=== PATIENT | male | born 1930 | race Caucasian/White ===

== ENCOUNTER 2017-08-17 18:06 | Inpatient (IN) | payer OTHER ==
[~2017-08-17] VITALS: Ht 175.2 cm; Wt 73.2 kg
--- NOTE | ~2017-08-17 | CON ---
[place], [place] REPORT OF CONSULTATION NAME: MOISES CORONA UNIT #: [id number] ROOM: 523 DOCTOR: JENNIFER DRAKE MD BIRTHDATE: [birth year] DOS: 08/18/2017 REASON FOR ADMISSION: Possible CHF. HISTORY OF PRESENT ILLNESS: An 86-year-old with a known history of significant coronary artery disease, bypass surgery. [facility] [place] [facility] and the patient was told that possibility of CHF and patient was consulted. Right now, he denies any chest discomfort. The patient is a very poor historian. Extremely hard of hearing. History mostly obtainable from the chart, not much obtained from the patient. MEDICATIONS: The patient is on simvastatin, fosinopril, aspirin, gabapentin, and Apixaban. ALLERGIES: None. SURGICAL HISTORY: As mentioned. PAST SURGICAL HISTORY: History of abdominal aortic aneurysm repair and bypass surgery 4-vessel. SOCIAL HISTORY: Denies any alcohol or tobacco abuse. FAMILY HISTORY: Hypertension. REVIEW OF SYSTEMS: CONSTITUTIONAL: Not in acute distress. HEENT: No visual disturbances, hearing problems. The patient is very hard of hearing. CARDIOVASCULAR: As per HPI. GASTROINTESTINAL: No nausea, no vomiting. GENITOURINARY: No dysuria. NEUROLOGIC: No syncope. PHYSICAL EXAMINATION: VITAL SIGNS: The patient's blood pressure is 100/70. HEENT: Unremarkable. NECK: Supple, no JVD. LUNGS: Diminished air entry. HEART: Sounds are regular. NEUROLOGICAL: Stable. LABORATORY DATA: Sodium 145, potassium 4, BUN 27, creatinine 1.3, hemoglobin 12, hematocrit 37.5. Chest x-ray showed cardiomegaly with interstitial pulmonary small left pleural effusion. I reviewed the echocardiogram, showed an excellent ejection fraction with mild to moderate aortic regurgitation and moderate mitral regurgitation. EKG shows 100% paced rhythm. IMPRESSION: Diastolic congestive heart failure, permanent pacemaker, hypertension, and hyperlipidemia, known coronary artery disease. [place], [place] REPORT OF CONSULTATION NAME: MOISES CORONA UNIT #: [id number] ROOM: 523 DOCTOR: JENNIFER DRAKE MD BIRTHDATE: [birth year] RECOMMENDATIONS: Continue the present medications. Continue IV diuretics. Strict I's and O's. Add a very small dose of beta blockers, he is not on anything at this point. Selective beta blockers like metoprolol 25 b.i.d. Creatinine is 1.3. If needed, we will watch the renal function closely. GFR is 49. We could consider a very small dose of KATHERINE inhibitors like to lisinopril 0.125 daily and monitor the heart rate and blood pressure closely and I will follow up. JENNIFER DRAKE MD CM:CONSTR:REPORT OF CONSULTATION 1500 08/19/17 0222 interface
[~2017-08-17 18:06] MED LIST changes: -ALLOPURINOL100 MG PO; -CENTRUM SILVER1 EACH PO; -ELIQUIS2.5 M1 PO; -Glimepiride1 MG PO; -LEVAQUIN500 M2 PO; -PREDNISONE10 MG PO
[2017-08-17 18:16] VITALS: BP 117/61
[2017-08-17 18:51] LABS: BASO % 0.2 % (0.0-1.0); EOS # 0.3 10*3/uL (0.0-0.4); EOS % 3.9 % (1.0-4.0); HEMATOCRIT 37.5 % (42.0-52.0); LYMPH # 2.4 10*3/uL (1.3-4.4); LYMPH % 29.5 % (27.0-41.0); MEAN CELL VOLUME 103.6 fl (80.0-94.0); MEAN CORPUSCULAR HGB 33.1 pg (27.0-31.0); MEAN PLATELET VOLUME 10.5 fl (9.6-12.3); MONO # 0.6 10*3/uL (0.1-1.0); NEUT # 4.7 10*3/uL (2.3-7.9); NEUT % 58.2 % (47.0-73.0); PLATELET COUNT AUTOMATED 192 10*3/uL (130-400); RED BLOOD COUNT 3.62 10*6/uL (4.50-5.90); RED CELL DISTRI WIDTH 14.8 % (0-14.5)
[2017-08-17 19:02] LABS: ACT PARTIAL THROMBO TIME 32.6 SECONDS (20.8-31.5); INTERNATIONAL NORM RATIO 1.2 (2.0-3.5)
[2017-08-17 19:08] LABS: BUN 27 mg/dl (7-24); CHLORIDE 111 mmol/L (98-107); CREATININE 1.32 mg/dL (0.70-1.30); SODIUM 145 mmol/L (136-145)
--- NOTE | 2017-08-17 19:16 | NUR ---
REPORT GIVEN TO [facility] [phone]. ADEN CALIXTO RN.
[2017-08-17 20:30] VITALS: BP 119/51
--- NOTE | 2017-08-17 20:30 | NUR ---
A 86, admitted to , under the services of MOLLY Valencia DO with a diagnosis of CHF. Chief complaint is C/O SHORTNESS OF BREATH. CAME FROM [facility]. Patient arrived via stretcher from ER. Monitor applied. Initial assessment completed. Vital signs taken and recorded. MOLLY VALENCIA DO notified of admission to the unit. Orders received. See assessment for past medical history, medications and allergies. Patient and/or family oriented to unit. [facility] visitation policy reviewed. Clothing/patient valuable form completed. WIN HORTON
--- NOTE | 2017-08-17 20:45 | NUR ---
MED LIST REVIEWED WITH FAMILY AND PATIENT.
--- NOTE | 2017-08-17 20:50 | NUR ---
SPOKE WITH DR. SMITH ABOUT MED REC BEING UPDATED AND ABOUT THE TOP OF LEFT FOOT. WAS TOLD TO NOTIFY WILLIE IN AM.
[2017-08-17] MEDS ORDERED: ELIQUIS2.5 M1 PO (21:03)
[2017-08-17] MEDS ORDERED: CENTRUM SILVER1 EACH PO (21:04)
[2017-08-17] MEDS ORDERED: ALLOPURINOL100 MG PO (21:05)
[2017-08-17] MEDS ORDERED: Glimepiride1 MG PO (21:12)
[2017-08-18] VITALS: BP 98/42
--- NOTE | 2017-08-18 06:36 | NUR ---
DR. DRAKE CALLED AND NOTIFIED OF CONSULT PER ORDER.
--- NOTE | 2017-08-18 06:52 | NUR ---
SPOKE TO BRODY LEIGH . STATED THAT PATIENT'S BEE WORKER IS DR. QUESADA FROM [place], BUT SHE THINKS HE MAY ALSO GO TO [facility].
[2017-08-18 07:47] LABS: BASO % 0.3 % (0.0-1.0); EOS # 0.5 10*3/uL (0.0-0.4); EOS % 5.6 % (1.0-4.0); HEMATOCRIT 36.2 % (42.0-52.0); HEMOGLOBIN 11.6 g/dl (14.0-18.0); LYMPH # 3.2 10*3/uL (1.3-4.4); LYMPH % 36.8 % (27.0-41.0); MEAN CELL VOLUME 102.5 fl (80.0-94.0); MEAN CORPUSCULAR HGB 32.9 pg (27.0-31.0); MEAN PLATELET VOLUME 11.2 fl (9.6-12.3); MONO # 0.7 10*3/uL (0.1-1.0); MONO % 8.6 % (3.0-9.0); NEUT # 4.2 10*3/uL (2.3-7.9); NEUT % 48.5 % (47.0-73.0); PLATELET COUNT AUTOMATED 193 10*3/uL (130-400); RED BLOOD COUNT 3.53 10*6/uL (4.50-5.90); RED CELL DISTRI WIDTH 14.8 % (0-14.5); WHITE BLOOD COUNT 8.6 10*3/uL (4.8-10.8)
[2017-08-18 08:00] VITALS: BP 126/49
[2017-08-18 08:13] LABS: ALBUMIN 2.7 gm/dl (3.1-4.5); CREATININE 1.37 mg/dL (0.70-1.30); POTASSIUM 3.4 mmol/L (3.5-5.1); TOTAL PROTEIN 7.1 gm/dL (6.4-8.2)
[2017-08-18 08:14] LABS: ACT PARTIAL THROMBO TIME 31.9 SECONDS (20.8-31.5); INTERNATIONAL NORM RATIO 1.2 (2.0-3.5)
[2017-08-18 08:19] LABS: THYROID STIM HORMONE (HS) 3.36 uIU/ml (0.358-4.75)
--- NOTE | 2017-08-18 08:33 | NUR ---
DR JOINER NOTIFIED OF CRITICAL GLUCOSE. UPDATED THAT PT DENIES FEELING LIKE HIS SUGAR IS LOW AND HE'S CURRENTLY UP EATING BREAKFAST. STATES OK TO HOLD OFF ON D50 AND RECHECK PT AFTER BREAKFAST.
--- NOTE | 2017-08-18 09:00 | NUR ---
Circus Train Supervisor in to talk to patient. Patient states lives at home with and daughter. There are few steps in the home. Physician: jaime tapia Pharmacy: Home health services: none Patient's level of ADLs: MINIMAL ASSIST Patient has working utilities: all working DME: walker, home oxygen and portable tanks, life alert bracelet Follow-up physician's appointment after d/c: will be made by hospitalist nurse director upon discharge Does patient want to access PORTAL?: no Discharge plan discussed with patient, patient lives at home with his and daughter, he uses a walker for ambulation, he has home oxygen and portable tanks, discussed with him a discharge plan and patient stated that he would be returning home, also discussed with him VNA and he refuses any services at this time, stated that he has alot of help at home, case management will follow for any needs. PARISA WALTERS
--- NOTE | 2017-08-18 09:40 | NUR ---
WILLIE, WOUND CARE NURSE IN TO SEE PT AND MAKE RECOMMENDATIONS AT THIS TIME.
--- NOTE | 2017-08-18 09:50 | NUR ---
BLOOD GLUCOSE RECHECKED AFTER BREAKFAST, 148.
--- NOTE | 2017-08-18 10:47 | NUR ---
ECHO BEING COMPLETED AT THIS TIME.
--- NOTE | 2017-08-18 10:50 | NUR ---
[facility] [id number] Please refer to the physician's history and physical for past medical history, comorbid conditions, and allergies. Diagnosis: CHF Sonny Score: 16,AT RISK WOUND DESCRIPTIONS: Location of the wound: left top of foot proximal Thickness: Partial Size: 2.4cm x 2.0cm x 0.1cm Tunneling: none Undermining: none Sinus Tract: none Presence of Exudate: Serosanguineous Amount: Light Color: Red Odor: None Periwound Skin Appearance: Erythema Wound edges: approximated Pain (associated with wound): none at time of assessment How does patient state this happened? pt stated his legs were swollen and that happened Location of the wound: left top of foot middle Thickness: Partial Size: 1.0cm x 2.0cm x <0.1cm Tunneling: none Undermining: none Sinus Tract: none Presence of Exudate: none Amount: None Color: Yellow Odor: None Periwound Skin Appearance: Erythema Wound edges: closed intact fluid filled blister Pain (associated with wound): none How does patient state this happened? pt stated he legs were swollen and this happened Location of the wound: left top of foot distal Thickness: Partial Size: 0.5cm x 0.8cm x 0.1 Tunneling: none Undermining: none Sinus Tract: none Presence of Exudate: Serosanguineous Amount: Light Color: Red Odor: None Periwound Skin Appearance: Erythema Wound edges: approximated Pain (associated with wound): none at time of assessment How does patient state this happened? pt stated his legs were swollen and that this happened Surface the patient is resting on: Isoflex SKIN PREVENTION RECOMMENDATION: 1. Pressure redistribution support surface as appropriate 2. Elevate heels 3. Remove boots/TEDS every shift and reapply 4. Head of bed 30 degrees as tolerated 5. Assess nutrition and hydration 6. Manage moisture 7. Avoid the use of containment devices while in bed 8. Use absorptive products on surfaces limit layers of linens on bed 9. Turn and reposition every 1-2 hours in bed and every 1 hour in chair as tolerated 10. Weight shifts every 15 minutes while up in chair 11. Offloading with pillows or device to keep heels elevated off bed 12. Monitor skin at least every shift 13. Inspect under medical devices twice a day WOUND TREATMENT RECOMMENDATIONS: Cleanse left foot areas with nss and apply sureprep around wound therahoney to wound bed versatel and cover with optifoam gentle.
--- NOTE | 2017-08-18 11:07 | NUR ---
case management called [facility], spoke to Cee, patient's information given and Cee stated she would give this to a binder caser and someone would call back
[2017-08-18 12:00] VITALS: BP 114/57
--- NOTE | 2017-08-18 13:43 | NUR ---
PHYSICAL THERAPY Patient evaluated on 5, full evaluation to follow. Continue with PT as per plan of care with fall, 02 and acute debility precautions. Significnt dyspneia with minimal exertion. PAtient is high complexity via chart review, tests and evaluation: [id number]. Home with 24/7 family assist and complete home health services [facility] for impaired mobility. thank you for this referral. Madeline Ribera,PT
--- NOTE | 2017-08-18 15:11 | NUR ---
DR DRAKE AND DR AVENDANO IN TO SEE PT AT THIS TIME.
--- NOTE | 2017-08-18 15:36 | NUR ---
WOUND CARE TO LEFT FOOT PERFORMED AT THIS TIME PER ORDER.
[2017-08-18 16:00] VITALS: BP 110/45
[2017-08-18 20:00] VITALS: BP 114/44
--- NOTE | 2017-08-18 20:08 | NUR ---
PATIENT IS SITTING UP IN BED WITH FAMILY MEMBERS AT THE BEDSIDE. PATIENT WAS PLEASANT UPON ASSESSMENT AND DENIES ANY PAIN AT THIS TIME. PATIENT REPOSITIONS SELF FREQUENTLY TO AVOID BACK DISCOMFORT. PATIENT IS OXYGEN DEPENDENT, BUT DENIES SOB CURRENTLY. CALL LIGHT SYSTEM WAS REINFORCED AND WITHIN REACH. SEE SHIFT ASSESSMENT.
--- NOTE | 2017-08-18 21:51 | NUR ---
PATIENT IS RESTING IN BED. PATIENT BG WAS 71MG/DL. PATIENT WAS ENCOURAGED TO DRINK ORANGE JUICE WITH EVENING SCHED MEDS. WILL CONTINUE TO MONITOR PATIENT. CALL LIGHT IS WITHIN REACH.
[2017-08-19] VITALS: BP 117/45
--- NOTE | 2017-08-19 00:50 | NUR ---
PATIENT IS IN AND OUT OF SLEEP UPON ASSESSMENT. PATIENT HAD INSP WHEEZES BILATERALLY AND WAS ABLE TO COUGH UP YELLOW THICK SPUTUM. PT DENIES ANY SOB OR PAIN AT THIS TIME. CALL LIGHT IS WITHIN REACH, SEE SHIFT ASSESSMENT.
--- NOTE | 2017-08-19 06:09 | NUR ---
PATIENT IS RESTING IN BED WATCHING TELEVISION. PT HAS BEEN ABLE TO USE THE URINAL WHILE STANDING AT THE BEDSIDE. PATIENT DENIES ANY PAIN OR DISCOMFORT AND DENIES ANY SOB WHILE RECEIVING 3LPM VIA NC. PT IS STILL PACED WITH 100% CAPTURE ON THE MONITOR AT 60BPM. CALL LIGHT IS WITHIN REACH.
[2017-08-19 06:27] LABS: BASO % 0.1 % (0.0-1.0); EOS # 0.5 10*3/uL (0.0-0.4); EOS % 6.5 % (1.0-4.0); HEMATOCRIT 35.7 % (42.0-52.0); HEMOGLOBIN 11.6 g/dl (14.0-18.0); LYMPH # 2.2 10*3/uL (1.3-4.4); LYMPH % 30.3 % (27.0-41.0); MEAN CELL VOLUME 101.1 fl (80.0-94.0); MEAN CORPUSCULAR HGB 32.9 pg (27.0-31.0); MEAN CORPUSCULAR HGB CONC 32.5 g/dl (33.0-37.0); MEAN PLATELET VOLUME 11.2 fl (9.6-12.3); MONO # 0.7 10*3/uL (0.1-1.0); MONO % 9.3 % (3.0-9.0); NEUT # 3.9 10*3/uL (2.3-7.9); NEUT % 53.5 % (47.0-73.0); PLATELET COUNT AUTOMATED 180 10*3/uL (130-400); RED BLOOD COUNT 3.53 10*6/uL (4.50-5.90); RED CELL DISTRI WIDTH 14.6 % (0-14.5); WHITE BLOOD COUNT 7.4 10*3/uL (4.8-10.8)
[2017-08-19 07:03] LABS: CHLORIDE 107 mmol/L (98-107); POTASSIUM 3.3 mmol/L (3.5-5.1); SODIUM 142 mmol/L (136-145)
[2017-08-19 07:10] LABS: BUN 24 mg/dl (7-24)
[2017-08-19 08:00] VITALS: BP 136/52
--- NOTE | 2017-08-19 08:00 | NUR ---
PATIENT SITTING IN RECLINER IN ROOM, EATING HIS BREAKFAST. ALERT, TALKATIVE, MAKES OCC. CONFUSED STATEMENTS. VERY PLEASANT. BOBO HOSE AND TUBIGRIP INTACT. OXYGEN INTACT VIA NC. NO EDEMA NOTED, DISCOLORATION TO LOWER EXTREMITIES. PATIENT WITH HEARING AIDES AND GLASSES INTACT. PATIENT WITH WHEEZES AND OCC. RASPY COUGH.
[2017-08-19 12:00] VITALS: BP 127/50
[2017-08-19 16:00] VITALS: BP 93/51
[2017-08-19 20:00] VITALS: BP 124/46
[2017-08-20] VITALS: BP 116/47
[2017-08-20 06:25] LABS: BASO % 0.1 % (0.0-1.0); HEMATOCRIT 36.4 % (42.0-52.0); HEMOGLOBIN 11.9 g/dl (14.0-18.0); MEAN CELL VOLUME 100.6 fl (80.0-94.0); MEAN CORPUSCULAR HGB 32.9 pg (27.0-31.0); MEAN CORPUSCULAR HGB CONC 32.7 g/dl (33.0-37.0); MONO # 0.1 10*3/uL (0.1-1.0); NEUT # 5.9 10*3/uL (2.3-7.9); NEUT % 84.3 % (47.0-73.0); PLATELET COUNT AUTOMATED 184 10*3/uL (130-400); RED BLOOD COUNT 3.62 10*6/uL (4.50-5.90); WHITE BLOOD COUNT 7.1 10*3/uL (4.8-10.8)
[2017-08-20 07:01] LABS: ALBUMIN 2.7 gm/dl (3.1-4.5); CREATININE 1.38 mg/dL (0.70-1.30); POTASSIUM 4.1 mmol/L (3.5-5.1)
[2017-08-20 07:03] LABS: TOTAL PROTEIN 7.1 gm/dL (6.4-8.2)
[2017-08-20 08:00] VITALS: BP 108/52; BP 112/58
--- NOTE | 2017-08-20 08:00 | NUR ---
ASSISTED TO SIDE OF BED, GENERALIZED WEAKNESS & STIFFNESS NOTED. SEVERAL OPEN AREAS NOTED, SKIN CARE PROVIDED. BEDALARM IN USE FOR PT SAFETY. SEE SHIFT ASSESSMENT.
--- NOTE | 2017-08-20 11:32 | NUR ---
OOB TO CHAIR, DR AVENDANO IN TO SEE PT & MADE AWARE OF WOUNDS. [facility] FOR PT SAFETY.
[2017-08-20 12:00] VITALS: BP 118/47
[2017-08-20 16:00] VITALS: BP 114/44
[2017-08-20 20:00] VITALS: BP 128/53
--- NOTE | 2017-08-20 20:05 | NUR ---
PT. AWAKE, ALERT AND ORIENTED X 3 AT THIS TIME. PT. UP IN CHAIR WITH FAMILY IN ROOM AND ALARM ON. PT. CURRENTLY ON 3LPM NC WITH DIMINISHED LUNG SOUNDS, DENIES SOB WHILE UP IN CHAIR. PT. STATED FATIGUE WITH AMBULATION, HRR, PPP, DENIES CP AT THIS TIME. PT. WOUNDS COVERED WITH OPTIFOAM THAT IS C/D/I AT THIS TIME. BS NORMO X4 QUADS, DENIES N/V/D. CALL LIGHT WITHIN REACH, WHEELS LOCKED ON CHAIR.
[2017-08-21] VITALS: BP 117/45
--- NOTE | 2017-08-21 04:16 | NUR ---
PT. SLEEPING AT THIS TIME, RESPIRATIONS EASY, NON-LABORED; NO SIGNS OF DISTRESS.
[2017-08-21 06:30] LABS: BASO % 0.1 % (0.0-1.0); HEMATOCRIT 36.9 % (42.0-52.0); HEMOGLOBIN 12.4 g/dl (14.0-18.0); LYMPH # 1.3 10*3/uL (1.3-4.4); LYMPH % 9.1 % (27.0-41.0); MEAN CORPUSCULAR HGB 33.6 pg (27.0-31.0); MEAN CORPUSCULAR HGB CONC 33.6 g/dl (33.0-37.0); MEAN PLATELET VOLUME 10.8 fl (9.6-12.3); MONO # 0.3 10*3/uL (0.1-1.0); MONO % 2.1 % (3.0-9.0); NEUT # 12.4 10*3/uL (2.3-7.9); NEUT % 87.9 % (47.0-73.0); PLATELET COUNT AUTOMATED 214 10*3/uL (130-400); RED BLOOD COUNT 3.69 10*6/uL (4.50-5.90); RED CELL DISTRI WIDTH 13.7 % (0-14.5); WHITE BLOOD COUNT 14.1 10*3/uL (4.8-10.8)
[2017-08-21 07:00] LABS: BUN 41 mg/dl (7-24); CHLORIDE 101 mmol/L (98-107); CREATININE 1.34 mg/dL (0.70-1.30); POTASSIUM 3.8 mmol/L (3.5-5.1); SODIUM 138 mmol/L (136-145)
[2017-08-21 08:00] VITALS: BP 107/44
--- NOTE | 2017-08-21 09:00 | NUR ---
case management visits with patient, discussed with him a short term retirement for rehab prior to going back home and patient refused, also discussed with him VNA and he was receptive to this, given choice of companies, patient chose [facility], systems requirements planner will send referrla to [facility] for when patient is medically stable for discharge
--- NOTE | 2017-08-21 10:38 | NUR ---
PHYSICAL THERAPY Tulio seen this AM 1:1 for there therapy session. Transfer supine/sit MIN A X 1, sitting balance once up supervision X 1, X 4 min no LOB. Sit/stand and up on wheeled walker standing balance CG X 1. Gait total 85' X 2, with MIN A X 1, one sitting rest with this with portable o2 at 2 L and did not get SOB. After short rest act Ex to bilateral LE of marching, LAQ's, and ankle pumps working in 20 reps each wit cueing for each Ex. Pt up in his bedside chair, call light, phone no complaint. JEFFREY HANNA AUTO DAMAGE TRAINEE.
--- NOTE | 2017-08-21 11:43 | NUR ---
Pt bsg was critically high x 1, repeat test performed on the opposite hand and result of 433 obtained. Pt admits to eating oreo cookies. Insulin given per orders.
[2017-08-21 12:00] VITALS: BP 119/48
--- NOTE | 2017-08-21 12:00 | NUR ---
[facility] [id number] Please refer to the physician's history and physical for past medical history, comorbid conditions, and allergies. Diagnosis: CHF Sonny Score: 16,AT RISK WOUND DESCRIPTIONS: Location of the wound: mid back Type of wound: stage 2 Thickness: Partial Size: 0.8cm x 1.5cm x <0.1cm Tunneling: none Undermining: none Sinus Tract: none Presence of Exudate: none Amount: None Color: [place] Odor: None Periwound Skin Appearance: Normal Wound edges: closed intact serum filled blister Pain (associated with wound): none at time of assessment How does patient state this happened? pt family stated that it occured from a heating pad prior to admission to the hospital. Location of the wound: right hip Type of wound: stage 2 Thickness: Partial Size: 0.4cm x 1.4cm x 0.1cm Tunneling: none Undermining: none Sinus Tract: none Presence of Exudate: Serosanguineous Amount: Light Color: Red Odor: None Periwound Skin Appearance: Normal Wound edges: approximated Pain (associated with wound): none at time of assessment How does patient state this happened? pt family stated it happened prior to admission from a heating pad Surface the patient is resting on: Isoflex SKIN PREVENTION RECOMMENDATION: 1. Pressure redistribution support surface as appropriate 2. Elevate heels 3. Remove boots/TEDS every shift and reapply 4. Head of bed 30 degrees as tolerated 5. Assess nutrition and hydration 6. Manage moisture 7. Avoid the use of containment devices while in bed 8. Use absorptive products on surfaces limit layers of linens on bed 9. Turn and reposition every 1-2 hours in bed and every 1 hour in chair as tolerated 10. Weight shifts every 15 minutes while up in chair 11. Offloading with pillows or device to keep heels elevated off bed 12. Monitor skin at least every shift 13. Inspect under medical devices twice a day WOUND TREATMENT RECOMMENDATIONS: Stage 2 guidelines mid back cleanse with nss and apply sureprep to intact blister allow time to dry the cover with optifoam gentle. Stage 2 guideline right hip cleanse with nss and apply sureprep to surrounding wound cover with versatel the cover with hydrogel then apply optifoam gentle. spoke with Dr. Chavira regarding wound care recommendations.
--- NOTE | 2017-08-21 14:46 | NUR ---
Spoke with Dr. Paris regarding wound care recommendations.
--- NOTE | 2017-08-21 15:15 | NUR ---
Pt son in law Araseli Motta is here and states that his called him and states that pt is going to be discharged today. He is requesting a wheelchair for pt, states that pt has a long walk up a ramp to his home and due to pt being unsteady and it being cold out he feels this is appropriate. I notified Maria Teresa Mullins in hospitalist office of this.
[2017-08-21] MEDS ORDERED: PREDNISONE10 MG PO (15:58)
[2017-08-21] MEDS ORDERED: LEVAQUIN500 M2 PO (15:58)
[2017-08-21 16:00] VITALS: BP 116/40
--- NOTE | 2017-08-21 16:52 | NUR ---
Discharge photos taken of wounds.
--- NOTE | 2017-08-21 18:31 | NUR ---
Pt daughter is here and they are waiting on wheelchair to be delivered by [facility]. States they would like to know how much longer they have to wait.
--- NOTE | 2017-08-21 18:32 | NUR ---
I called [facility] and notified of pt families concerns and they took our number and will have someone call us back.
--- NOTE | 2017-08-21 18:38 | NUR ---
[facility] As[facility] called me back and states that he spoke with his jewel supervisor, he states that they never received the information that they needed regarding pt and that they are unable to send wheelchair at this time. States that they called the hospitalist office but never received the info so at this time they cannot send wheelchair. PT danna states that her sister has a wheelchair they can use to get the pt into the house.
--- NOTE | 2017-08-21 18:56 | NUR ---
Pt dc via wheelchair in care of daughter.
--- NOTE | 2017-08-22 07:19 | NUR ---
Patient discharged to home with home health via [facility]. Faxed order and clincals for referral.
--- NOTE | 2017-08-22 07:55 | NUR ---
PHYSICAL THERAPY CO-SIGN I approve of the Phyical Therapy notes written above. SHAMEKA CROWDER PT
== END 2017-08-21 18:56 | disposition home health service (06) | DRG 291 ==
LOC: ED 18:06 → EDHOLD 19:30 → 5E 19:30
PROVIDERS: Emergency Medicine; Family Medicine; Internal Medicine; Internal Medicine Nephrology; ADMIT Internal Medicine
DX: I13.0 Hypertensive heart and chronic kidney disease with heart failure and stage 1 through stage 4 chronic kidney disease, or unspecified chronic kidney disease (principal); J96.21 Acute and chronic respiratory failure with hypoxia; E43 Unspecified severe protein-calorie malnutrition; J18.9 Pneumonia, unspecified organism; E11.22 Type 2 diabetes mellitus with diabetic chronic kidney disease; D68.59 Other primary thrombophilia; E11.649 Type 2 diabetes mellitus with hypoglycemia without coma; E87.8 Other disorders of electrolyte and fluid balance, not elsewhere classified; I50.33 Acute on chronic diastolic (congestive) heart failure; J44.0 Chronic obstructive pulmonary disease with (acute) lower respiratory infection; J44.1 Chronic obstructive pulmonary disease with (acute) exacerbation; H91.90 Unspecified hearing loss, unspecified ear; E83.41 Hypermagnesemia; D53.9 Nutritional anemia, unspecified; E87.6 Hypokalemia; N18.3 Chronic kidney disease, stage 3 (moderate); I25.10 Atherosclerotic heart disease of native coronary artery without angina pectoris; E78.5 Hyperlipidemia, unspecified; Z95.1 Presence of aortocoronary bypass graft; Z82.49 Family history of ischemic heart disease and other diseases of the circulatory system; Z99.81 Dependence on supplemental oxygen; Z79.01 Long term (current) use of anticoagulants; Z85.51 Personal history of malignant neoplasm of bladder; Z85.828 Personal history of other malignant neoplasm of skin; Z80.0 Family history of malignant neoplasm of digestive organs; Z87.891 Personal history of nicotine dependence; Z79.82 Long term (current) use of aspirin; Z79.899 Other long term (current) drug therapy; Z68.26 Body mass index [BMI] 26.0-26.9, adult

== ENCOUNTER → 2017-08-17 | Outpatient (CLI) | payer OTHER, MEDICARE ==
[~2017-08-17] MED LIST: ALLOPURINOL100 MG PO; AMLODIPINE10 MG PO; ASPIRIN81 M1 PO; CENTRUM SILVER1 EACH PO; CENTRUM SILVER1 TA1 PO; COUMADIN6 MG PO; E-400400 IU PO; ELIQUIS2.5 M1 PO; FISH OIL 10001000 MG PO; FOSINOPRIL SODI20 MG PO; FOSINOPRIL20 MG PO; GABAPENTIN100 M1 PO; GLIMEPIRIDE2 MG PO; Glimepiride1 MG PO; HYDROCHLOROTH12.5 MG PO; LEVAQUIN500 M2 PO; METOPROLOL SR25 MG PO; NORCO 325 MG-51 TAB PO; NORVASC5 MG PO; PREDNISONE10 MG PO; SPIRIVA18 MCG PO; SYMBICORT1 AE1 INH; TYLENOL325 M1 PO; ZOCOR10 MG PO
== END | disposition home or self-care (01) ==
LOC: RAD 13:58
DX: J90 Pleural effusion, not elsewhere classified (principal); J81.1 Chronic pulmonary edema; Z87.891 Personal history of nicotine dependence; Z99.81 Dependence on supplemental oxygen